=== PATIENT | female | born 1990 | race Two or more races ===

== ENCOUNTER 2018-09-10 18:58 | Emergency (ER) | payer BC ==
[~2018-09-10] VITALS: Ht 157.5 cm; Wt 70.9 kg
[2018-09-10 19:04] VITALS: BP 135/78
--- NOTE | 2018-09-10 19:27 | NUR ---
CONTACT WITH PT, 27 YR OLD FEMALE HERE WITH C/O "I HAVE AN IUD, I'M HAVING SOME DISCHARGE AND I JUST WANT TO MAKE SURE ITS NOT INFECTED OR ANYTHING" HAS HAD THE IUD FOR 2 YRS. UNKNOWN LENGH OF TTIME OF DISCHARGE "I JUST PAID ATTENTION TO IT TODAY"
--- NOTE | 2018-09-10 19:33 | NUR ---
PT TO BR TO ATTEMPT URINE SPECIMAN. GAIT STEADY. FAMILY AT BEDSIDE.
[2018-09-10 19:52] LABS: MICROSCOPIC NOT IND
[2018-09-10 19:53] LABS: CULTURE INDICATED? YES; HCG UR SG 1.015 (1.003-1.030)
[2018-09-10 20:32] LABS: CLUE CELLS NONE SEEN (NONE SEEN); WET PREP WBCS MODERATE (FEW)
--- NOTE | 2018-09-10 20:54 | NUR ---
REPORT TO SEJAL STOCKTON
--- NOTE | 2018-09-10 21:13 | NUR ---
PT D/C WITH D/C SUMMARY AND SCRIPTS. ALL QUESTIONS ANSWERED. PT AMBULATES TO REGISTRATION DESK WITH FAMILY WITH STEADY GAIT FOR D/C HOME. PT DENIES ANY OTHER NEEDS PERTAINING TO THIS VISIT.
== END 2018-09-10 21:26 | disposition home or self-care (01) ==
LOC: ED 21:00
DX: N89.8 Other specified noninflammatory disorders of vagina (principal)
CPT/HCPCS: 81003; 81025; 87086; 87210; 87491; 87591; 87808; 99283

== ENCOUNTER 2019-01-06 11:13 | Emergency (ER) | payer SELFPAY ==
[~2019-01-06] VITALS: Ht 157.5 cm; Wt 70.2 kg
--- NOTE | 2019-01-06 11:54 | NUR ---
PT AMBULATORY TO ED FROM HOME W/ . C/O EPIGASTRIC PAIN THAT RADIATES TO CHEST AND BACK X2 DAYS. SOMEWHAT RELIEVED BY APAP AND MOTRIN. DENIES NAUSEA/VOMITING. +DIARRHEA. STS NORMAL PO INTAKE. DENIES BLOOD IN STOOL, LAST BM TODAY. PT STARTED METHIMAZOLE 3 DAYS AGO FOR GRAVES. ALSO C/O DIZZINESS. A&OX4 GCS 15 NSR ON MONITOR CALL CLARK IN REACH CXR COMPLETE WAITING FOR LAB WORK SEEN BY MIKY PAYAN. FALL PRECS IN PLACE.
[2019-01-06] MEDS ORDERED: METH10TA6 PO (11:58)
[2019-01-06 12:05] LABS: BASOPHILS # (AUTO) 0.02 x10^3/uL (0-0.1); BASOPHILS % (AUTO) 0 % (0-1); EOSINOPHILS # (AUTO) 0.07 x10^3/uL (0-0.4); EOSINOPHILS % (AUTO) 1 % (1-7); LYMPHOCYTES # (AUTO) 2.44 x10^3/uL (1-3.4); LYMPHOCYTES % (AUTO) 37 % (22-44); MD NO; MEAN CORPUSCULAR HEMOGLOBIN 26.1 pg (27.0-34.8); MEAN CORPUSCULAR HGB CONC 32.6 g/dL (32.4-35.8); MEAN CORPUSCULAR VOLUME 79.9 fL (80-100); MEAN PLATELET VOLUME 7.8 fL (7.4-10.4); MONOCYTES # (AUTO) 0.32 x10^3/uL (0.2-0.8); MONOCYTES % (AUTO) 5 % (2-9); NEUTROPHILS # (AUTO) 3.73 x10^3/uL (1.8-6.8); NEUTROPHILS % (AUTO) 57 % (42-75); PLATELET COUNT 230 x10^3/uL (130-400); RED BLOOD COUNT 4.87 x10^6/uL (3.82-5.3); RED CELL DISTRIBUTION WIDTH 15.1 % (9.6-15.2)
[2019-01-06 12:14] LABS: ALANINE AMINOTRANSFERASE 39 U/L (12-78); ALBUMIN 3.5 g/dL (3.4-5.0); ANION GAP 7 mmol/L (5-15); CALCIUM 8.7 mg/dL (8.5-10.1); CHLORIDE 108 mmol/L (98-107)
[2019-01-06 12:18] LABS: MICROSCOPIC AUTO
[2019-01-06 12:20] LABS: ALKALINE PHOSPHATASE 72 U/L (45-117); BILIRUBIN,TOTAL 0.7 mg/dL (0.2-1.0); FREE T4 (FREE THYROXINE) 2.44 ng/dL (0.76-1.46); TOTAL PROTEIN 7.1 g/dL (6.4-8.2)
[2019-01-06 12:21] LABS: CULTURE INDICATED? YES
--- NOTE | 2019-01-06 13:08 | NUR ---
PT RESTING COMFORTABLY. VSS. AWAITING US. CALL CLARK IN REACH. LABS WNL.
--- NOTE | 2019-01-06 13:24 | NUR ---
MAIRA SRIVASTAVA AT BEDSIDE FOR RECHECK/EXPLANATION OF RESULTS. PT AO X 4. SKIN PWD. RESP EVEN AND UNLABORED. AT BEDSIDE. PT ON CONT BP, CARDIAC AND O2 MONITORS . CALL LIGHT WITHIN REACH. WILL CONT TO MONITOR PT.
[2019-01-06 14:18] VITALS: BP 105/67
== END 2019-01-06 14:24 | disposition home or self-care (01) ==
LOC: ED 14:15
DX: K85.00 Idiopathic acute pancreatitis without necrosis or infection (principal); E05.90 Thyrotoxicosis, unspecified without thyrotoxic crisis or storm; R07.9 Chest pain, unspecified
CPT/HCPCS: 36415; 71045; 76700; 80053; 81001; 83690; 84439; 84443; 84703; 85025; 87086; 93005; 99284